=== PATIENT | male | born 1995 | race Caucasian/White ===

== ENCOUNTER 2016-02-20 11:07 | Emergency (ER) | payer OTHER ==
[~2016-02-20] VITALS: Ht 160 cm; Wt 56.8 kg
[2016-02-20 11:27] VITALS: BP 130/56; PULSE 65; RESP 16; TEMP 99; O2SAT 100
[2016-02-20] MEDS ORDERED: BUPIVACAINE HCL PF 0.5% 10 ML VIAL INFIL ONE (12:00)
[2016-02-20] MEDS ORDERED: LIDOCAINE 1%/EPINEPHrine 1:100,000 SOLN 20 ML VIAL INFIL ONE (12:00)
--- NOTE | 2016-02-20 12:11 | PD ---
HPI Chief Complaint: Injury Time Seen by Provider: 11:50 Travel History International Travel<30 days: No Contact w/Intl Traveler<30days: No Traveled to known affect area: No History of Present Illness HPI 20-year-old male presents to the emergency room for evaluation of injury to the right fourth finger that occurred just prior to arrival while working. 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 States he was trying to hammer and a nail in his finger got in the way. Reports significant pain at the nail. Denies significant pain anywhere else. No other injuries. Last tetanus was one month ago. Denies chronic medical conditions. He is not on blood thinners. [facility] Past Medical History Medical History: Denies Significant Hx Tetanus Vaccination: < 5 Years Past Surgical History Surgical History: No Previous Surgery Social History Alcohol Use: No Tobacco Use: Yes (1-2 cigarette daily) Substance Use: No Allergies-Medications (Allergen,Severity, Reaction): Coded Allergies: No Known Allergies (Unverified , 02/20/16) Reported Meds & Prescriptions Reported Meds & Active Scripts Active Keflex (Cephalexin) 500 Mg Cap 500 Mg PO Q6H 7 Days Review of Systems Except as stated in HPI: all other systems reviewed are Neg Physical Exam Narrative GENERAL: Well-nourished, well-developed male in no acute distress. Afebrile. Ambulatory. SKIN: Warm and dry. There is a moderately avulsed nail with the nail matrix still intact. Less than 2 second capillary refill distally. Distal sensation intact. HEAD: Normocephalic. EYES: No scleral icterus. No injection or drainage. NECK: Supple, trachea midline. No JVD or lymphadenopathy. EXTREMITY: Right fourth finger tenderness to palpation at the nail. Full range of motion in all joints. No significant edema. Data Data Last Documented VS Vital Signs Date Time Temp Pulse Resp B/P Pulse Ox O2 Delivery O2 Flow Rate FiO2 02/20/16 11:27 99.0 65 16 130/56 100 Orders Finger (Vml1rne) (02/20/16 ) Bupivacaine Pf 0.5% Inj (Marcaine Pf 0.5 (02/20/16 12:00) Lidocai-Epi 1%-1:100,000 Inj (Xylocaine- (02/20/16 12:00) Lidocaine 1% Inj (50 Ml) (Xylocaine 1% I (02/20/16 12:30) MDM Medical Decision Making Medical Screen Exam Complete: Yes Emergency Medical Condition: Yes Medical Record Reviewed: Yes Differential Diagnosis Nail avulsion versus laceration versus abrasion Narrative Course 20-year-old right-handed male presents to the emergency room for evaluation of right fourth finger nail partial avulsion and that occurred just prior to arrival after he accidentally hammered his finger. Patient is primarily Faroese -speaking and freelance interpreter/translator was used throughout. Tetanus is up-to-date. Physical exam reveals partially avulsed nail with intact matrix. It was thoroughly cleansed with soap and water. Digital block was performed and wound was explored. There is a slight laceration at the medial and lateral aspects of the nail bed. Laceration was repaired, see procedure note for details. X- ray shows distal tuft fracture. Patient will be placed on Keflex and told to follow up with a hand surgeon or return to the emergency room for worsening symptoms. He understands and agrees to plan. Procedures Procedure Narrative LACERATION LOCATION: Right fourth finger LENGTH: 1 cm NUMBER OF STITCHES/KANWAL: 6 simple interrupted REPAIR: The area of the laceration was prepped with Betadine and sterilely draped. Digital block was performed and the finger was infiltrated with 1% lidocaine and 0.5% bupivacaine. The wound was copiously irrigated and explored without evidence of foreign body, tendon injury or neurovascular injury. The wound was closed using 6-0 Vicryl. This was a single layer repair. A sterile dressing was applied. The patient was advised to keep the dressing clean and dry. Patient tolerated the procedure well. Diagnosis Primary Impression: Open fracture of tuft of distal phalanx of finger Qualified Code: S62.639B - Open fracture of tuft of distal phalanx of finger, initial encounter Additional Impression: Nail avulsion, finger Qualified Code: S61.309A - Nail avulsion, finger, initial encounter Referrals: Hand Surgeon Primary Care Physician Patient Instructions: Finger Fracture (ED), General Instructions, Nail Avulsion (ED) Additional Instructions: Rest and drink plenty of fluids. Keep wound clean and dry. Apply triple antibiotic ointment. Take ibuprofen with food as directed, as needed for pain. Apply ice to the affected area for 20 minutes at a time, as needed for pain and swelling. Follow-up with a primary care physician. Return to the emergency room for worsening symptoms. Med/Other Pt SpecificInfo: Prescription(s) given Scripts Cephalexin (Keflex)500 Mg [id number] Mg PO Q6H 7 Days Ref 0 Prov:Jose Mckee MD 02/20/16 Disposition: 01 DISCHARGE HOME Condition: Stable Raysa Raphael Feb 20, 2016 12:11
[2016-02-20] MEDS ORDERED: LIDOCAINE HCL 1% 50 ML VIAL INFIL ONE (12:30)
--- NOTE | 2016-02-20 12:32 | RADHPO ---
EXAM DATE/TIME: 02/20/2016 12:14 [place] COMPARISON: No previous studies available for comparison. INDICATIONS : Distal right 4th digit was smashed today. MEDICAL HISTORY : None. SURGICAL HISTORY : None. ENCOUNTER: Initial ACUITY: 1 day PAIN SCORE: 6/10 LOCATION: Right distal 4th digit. FINDINGS: Examination of the fourth digit of the right hand demonstrates extensive soft tissue injury and minim al comminuted fracture of the distal phalanx of the fourth finger. Soft tissue swelling. CONCLUSION: Fracture distal phalanx fourth digit. Tyrel Olivas MD on February 20, 2016 at 12:30 Board Certified Radiologist. This report was verified electronically.
[2016-02-20] MEDS ORDERED: CEPH-460 PO (12:35)
== END 2016-02-20 14:41 | disposition home or self-care (01) ==
LOC: PHEFT 11:07
DX: S62.664B Nondisplaced fracture of distal phalanx of right ring finger, initial encounter for open fracture (principal); S61.314A Laceration without foreign body of right ring finger with damage to nail, initial encounter; X58.XXXA Exposure to other specified factors, initial encounter; Y93.9 Activity, unspecified; Y92.9 Unspecified place or not applicable; Y99.9 Unspecified external cause status
CPT/HCPCS: 12001; 73140